=== PATIENT | male | born 1945 ===

== ENCOUNTER 2018-01-29 06:26 | Day surgery (SDC) | payer OTHER ==
[2018-01-29] MEDS ORDERED: LIDOCAINE 1% 2 ML INJ ID PRN (06:50)
[2018-01-29] MEDS ORDERED: LR 1,000 ML IV ONE (06:50)
[2018-01-29] MEDS ORDERED: ALBUTEROL 3 ML DEYVIAL IH ONE (07:30)
[2018-01-29] MEDS ORDERED: LIDOCAINE HCL 4% TOPICAL SOLN 50ML MM ONE (07:30)
[2018-01-29] MEDS ORDERED: LIDOCAINE HCL 4% TOPICAL SOLN 50ML ONE (07:33)
[2018-01-29] MEDS ORDERED: LIDOCAINE 2% JELLY 5 ML TUBE ONE (08:04)
[2018-01-29] MEDS ORDERED: MIDAZOLAM 2 MG/2 ML VIAL ONE ×2 (08:04→08:05)
[2018-01-29] MEDS ORDERED: fentaNYL 100 MCG/2 ML INJ ONE (08:05)
[2018-01-29] MEDS ORDERED: LIDOCAINE 1% 300 MG/30 ML SDV ONE (08:06)
--- NOTE | 2018-01-29 08:13 | PDPROPOC ---
Sedation Plan of Care Sedation Plan of Care: vital signs stable, mental status noted, patient educated of risks, benefits, alternatives, patient can tolerate sedation ASA Classification: ASA 2 Planned drugs: fentanyl, midazolam Mallampati Score: Class 2 Mallampati Reference Image: Patient passed 3-3-2 rule?: Yes
--- NOTE | 2018-01-29 08:56 | BVPULMO ---
Former[facility]- Pulmonology Patient Name: Ramirez Ravi Procedure Date: 01/29/2018 8:23 AM Patient Type: Outpatient Attending MD/ER Physician: Irving Mckeon MD Procedure: Bronchoscopy Indications: Left lower lobe mass Providers: Irving Mckeon MD Medicines: Lidocaine 4% via nebulizer with Albuterol 2.5 mg, Lidocaine 1% applied to cords 2 mL, Lidocaine 2% applied to the tracheobronchial tree 4 mL, Fentanyl 125 mcg IV , Midazolam 6 mg IV, Oxygen 4 L/min Complications: No immediate complications Procedure: After informed consent, a time out was performed. N95 masks were worn, and the procedure was done in a negative pressure room. The patient was given appropria te topical anesthesia and intravenous sedation. The fiberopic bronchoscope was pas sed via a bite block orally into the larynx and subsequently into the lower trachea bronchial tree. Throughout the procedure, the patient's blood pressure, pulse, and oxygen saturations were monitored continuously. The Bronchoscope (Video) was introduced through the mouth and advanced to the tracheobronchial tree. The procedure was accomplished without difficulty. The patient tolerated the proced ure well. The total duration of the procedure was 20 minutes. Findings: The oropharynx appears normal. The larynx appears normal. The vocal cords appea r normal. The subglottic space is normal. The trachea is of normal caliber. The c jessica is sharp. The tracheobronchial tree was examined to at least the first subsegme ntal level. Bronchial mucosa and anatomy are normal; there are no endobronchial lesi ons, and no secretions. Bronchoalveolar lavage was performed in the LLL posterior basal segment (B10) o f the lung and sent for cell count, bacterial culture, viral smears & culture, and fu ngal & AFB analysis and routine cytology. 60 mL of fluid were instilled. 40 mL were returned. The return was cloudy. There were no mucoid plugs in the return fluid . Post Op Diagnosis: - Left lower lobe mass - The examination was normal. - Bronchoalveolar lavage was performed. - The examination was normal. Estimated Blood Loss: Estimated blood loss: none. Recommendation: - Await BAL results. Attending Participation: I personally performed the entire procedure. Irving Mckeon MD Irving Mckeon MD 01/29/2018 8:56:15 AM This report has been signed electronicallyThomas MD Linda Number of Addenda: 0 Note Initiated On: 01/29/2018 8:23 AM [email or web address]
[2018-01-29 09:23] VITALS: RESP 16
[2018-01-29 09:25] VITALS: PULSE 78
[2018-01-29 10:35] VITALS: BP 114/63
[2018-01-29 10:44] VITALS: TEMP 97.3; O2SAT 92
== END 2018-01-29 10:30 | disposition home or self-care (01) ==
LOC: FSGY 06:26
PROVIDERS: ATTEND Internal Medicine Pulmonary Disease
PROC: BB13ZZZ Fluoroscopy of Left Lung (ICD-10-PCS; 2018-01-29)
PROC: 0B9B8ZX Drainage of Left Lower Lobe Bronchus, Via Natural or Artificial Opening Endoscopic, Diagnostic (ICD-10-PCS; principal; 2018-01-29 08:00)
DX: R91.8 Other nonspecific abnormal finding of lung field (principal); Z87.891 Personal history of nicotine dependence; Z85.46 Personal history of malignant neoplasm of prostate; Z80.7 Family history of other malignant neoplasms of lymphoid, hematopoietic and related tissues
CPT/HCPCS: J0171; J2250; J3010; J7613

== ENCOUNTER 2018-03-11 10:28 | Day surgery (SDC) | payer OTHER ==
[2018-03-11] MEDS ORDERED: BENZOCAINE UNIT DOSE SPRAY HURRICAINE MM ONE (10:30)
[2018-03-11] MEDS ORDERED: LIDOCAINE 1% 300 MG/30 ML SDV ONE (10:30)
[2018-03-11] MEDS ORDERED: NS 500 ML IV ONE (10:44)
[2018-03-11] MEDS ORDERED: LIDOCAINE 1% 2 ML INJ ID PRN (10:44)
[2018-03-11] MEDS ORDERED: LIDOCAINE 1% 2 ML INJ ONE (10:46)
[2018-03-11] MEDS ORDERED: MIDAZOLAM 2 MG/2 ML VIAL ONE (10:53)
[2018-03-11] MEDS ORDERED: fentaNYL 100 MCG/2 ML INJ ONE (10:54)
[2018-03-11] MEDS ORDERED: LIDOCAINE 4% 5 ML AMP IH ONE (11:15)
--- NOTE | 2018-03-11 12:05 | BVPULMO ---
[facility]- Pulmonology Patient Name: Ramirez Ravi Procedure Date: 03/11/2018 10:59 AM Patient Type: Outpatient Attending MD/ER Physician: Irving Mckeon MD Procedure: Bronchoscopy Indications: Infiltrate Providers: Irving Mckeon MD Medicines: Lidocaine 4% via nebulizer with Albuterol 2.5 mg, Fentanyl 125 mcg IV, Midazola m 6 mg IV, Lidocaine 1% applied to cords 2 mL, Lidocaine 1% applied to the tracheobronchial tree 4 mL, Oxygen 3 L/min Complications: No immediate complications Procedure: After informed consent, a time out was performed. N95 masks were worn, and the procedure was done in a negative pressure room. The patient was given appropria te topical anesthesia and intravenous sedation. The fiberopic bronchoscope was pas sed via a bite block orally into the larynx and subsequently into the lower trachea bronchial tree. Throughout the procedure, the patient's blood pressure, pulse, and oxygen saturations were monitored continuously. The Bronchoscope was introduced through the mouth and advanced to the tracheobronchial tree of both lungs. The procedure was accomplished without difficulty. The patient tolerated the proced ure well. The total duration of the procedure was 20 minutes. Findings: The endotracheal tube is in good position. The trachea is of normal caliber. Th e baron is sharp. The tracheobronchial tree was examined to at least the first subsegmental level. Bronchial mucosa and anatomy are normal; there are no endobronchial lesions, and no secretions. Bronchoalveolar lavage was performed in the RUL apical segment (B1), in the RUL posterior segment (B2) and in the RUL anterior segment (B3) of the lung and sen t for cell count, bacterial culture, viral smears & culture, and fungal & AFB analysi s and cytology and routine cytology. 60 mL of fluid were instilled. 40 mL were return ed. The return was cloudy. There were no mucoid plugs in the return fluid. Post Op Diagnosis: - Infiltrate - The examination was normal. - Bronchoalveolar lavage was performed. - The examination was normal. Estimated Blood Loss: Estimated blood loss: none. Recommendation: - Await BAL results. - Follow up with bronchoscopist in 1 month. Attending Participation: I personally performed the entire procedure. Irving Mckeon MD Irving Mckeon MD 03/11/2018 12:04:44 PM This report has been signed electronicallyThomas MD Linda Number of Addenda: 0 Note Initiated On: 03/11/2018 10:59 AM [email or web address]
--- NOTE | 2018-03-11 12:06 | POSTOPPROG ---
Post Op Note Date of Operation: 03/11/18 Surgeon: Irving Mckeon Anesthesia: IV Sedation Pre-op Diagnosis: RUL infiltrate Post-op Diagnosis: Same Procedure: Bronchoscopy Findings: Normal airways Inf/Abcess present in the surg proc area at time of surgery?: No EBL: Minimal
--- NOTE | 2018-03-11 13:04 | CPEKG ---
Heart Rate: 93 RR Interval: 645 P-R Interval: 140 QRSD Interval: 118 QT Interval: 372 QTC Interval: 463 P [place]: 75 QRS [place]: 88 T Wave [place]: 60 EKG Severity - ABNORMAL ECG - EKG Impression: SINUS RHYTHM EKG Impression: INCOMPLETE RIGHT BUNDLE BRANCH BLOCK Electronically Signed By: Berta Banuelos 11-Mar-2018 16:37:34
[2018-03-11 13:57] VITALS: BP 116/58
== END 2018-03-11 13:55 | disposition home or self-care (01) ==
LOC: FSGY 10:28
PROVIDERS: ATTEND Internal Medicine Pulmonary Disease
PROC: 0B948ZX Drainage of Right Upper Lobe Bronchus, Via Natural or Artificial Opening Endoscopic, Diagnostic (ICD-10-PCS; principal; 2018-03-11 11:00)
DX: R91.8 Other nonspecific abnormal finding of lung field (principal); Z85.49 Personal history of malignant neoplasm of other male genital organs; Z87.891 Personal history of nicotine dependence; Z82.3 Family history of stroke; Z80.6 Family history of leukemia
CPT/HCPCS: J2250; J3010

== ENCOUNTER 2018-03-20 10:34 | Day surgery (SDC) | payer OTHER ==
[2018-03-20] MEDS ORDERED: GLUCAGON HCL 1 MG VIAL IVP PRN (10:39)
[2018-03-20] MEDS ORDERED: NALOXONE HCL 0.4 MG/ML INJ IVP PRN (10:39)
[2018-03-20] MEDS ORDERED: PROTAMINE SULFATE 50 MG/5 ML VIAL IVP PRN (10:39)
[2018-03-20] MEDS ORDERED: FLUMAZENIL 0.5 MG/5 ML MDV IVP PRN (10:39)
[2018-03-20] MEDS ORDERED: fentaNYL 100 MCG/2 ML INJ IVP PRN (10:39)
[2018-03-20] MEDS ORDERED: MEPERIDINE 25 MG/ML SYR IVP PRN (10:39)
[2018-03-20] MEDS ORDERED: HEPARIN 10,000 UNIT/10 ML MDV (1,000 UNIT/ML) IVP PRN (10:39)
[2018-03-20] MEDS ORDERED: MIDAZOLAM 2 MG/2 ML VIAL IVP PRN (10:39)
[2018-03-20] MEDS ORDERED: ALTEPLASE 2 MG VIAL IVP PRN (10:39)
[2018-03-20] MEDS ORDERED: NS 1,000 ML IV SCH (10:45)
[2018-03-20] MEDS ORDERED: ONDANSETRON 4 MG/2 ML VIAL IVP PRN (13:28)
--- NOTE | 2018-03-20 13:34 | PDGENHP ---
History & Physical Chief Complaint: cough. Right lung mass History of Present Illness: SHERRILL. Cough. Right lung mass. Cardiorespiratory Assessment: clear lungs. RRR.
--- NOTE | 2018-03-20 13:37 | PDRADPN ---
Radiology Procedure Note Date of Procedure: 03/20/18 Radiologist: Carter Whipple Steam Roller Operator(s): Viral RAMIREZ Anesthesia: IV Sedation Pre-op Diagnosis: Right lung mass Post-op Diagnosis: Right lung mass Indication: Right lung mass Procedure: CT guided core biopsy for histology and microbiology Finding(s): 1. Increasing in size Right lung mass. 2. No pneumothorax post biopsy Inf/Abcess present in the surg proc area at time of surgery?: No Depth: Organ Space (Right lung) Complications: No immediate complication. Drains: Other (None)
[2018-03-20 18:01] VITALS: BP 107/69
== END 2018-03-20 17:45 | disposition home or self-care (01) ==
LOC: FIMAGING 10:34
PROVIDERS: ATTEND Internal Medicine Pulmonary Disease
PROC: 0BBC3ZX Excision of Right Upper Lung Lobe, Percutaneous Approach, Diagnostic (ICD-10-PCS; principal; 2018-03-20 13:45)
DX: R91.8 Other nonspecific abnormal finding of lung field (principal); J84.10 Pulmonary fibrosis, unspecified; R05 Cough; Z85.46 Personal history of malignant neoplasm of prostate; Z87.891 Personal history of nicotine dependence; Z87.09 Personal history of other diseases of the respiratory system; Z82.3 Family history of stroke; Z80.6 Family history of leukemia
CPT/HCPCS: J2250; J2310; J3010